=== PATIENT | male | born 1965 | race Caucasian/White ===

== ENCOUNTER 2017-03-18 12:01 | Emergency (ER) | payer SELFPAY ==
[2017-03-18] MEDS ORDERED: NS 0.9% 1000 ML* 1,000 ML IV ONE (12:12)
[2017-03-18 12:41] LABS: Hematocrit 46 % (42-52); Hemoglobin 15.8 g/dl (14.0-18.0); Mean Corpuscular HGB Conc 35 g/dl (31-36); Mean Corpuscular Hemoglobin 31 pg (27-31); Mean Corpuscular Volume 89 fL (80-94); Mean Platelet Volume 9 um3 (7.4-10.4); Red Blood Count 5.12 10^6/ul (4.0-5.4); Red Cell Distribution Width 14 % (10.5-15); White Blood Count 6.2 10^3/ul (3.5-10.8)
[2017-03-18 13:06] LABS: Albumin 4.1 g/dL (3.2-5.2); BUN/Creatinine Ratio 15.5 (8-20); EGFR African American 105.4 (>60); EGFR Non-African American 81.9 (>60); Potassium 4.1 mmol/L (3.5-5.0); Total Bilirubin 0.4 mg/dL (0.2-1.0); Total Protein 7.1 g/dL (6.4-8.9)
[2017-03-18 13:26] LABS: TSH (Thyroid Stimulating Horm) 2.89 mcIU/mL (0.34-5.60)
[2017-03-18 15:21] VITALS: BP 132/94
--- NOTE | 2017-03-23 09:19 | ED ---
Syncope/Near Syncope - HPI Summary HPI Summary: Patient presents to the ED BIBA after a syncopal episode at work. This is the first time this has happened. He states he was getting up to drink a glass of water when he became light headed and woke up on the floor surrounded by his co- workers. He denies head injury. The fall was witnesses and co-workers also state he did not injury his head. He denies any pain or LOCKETT. States immediately upon wakening, he was not confused or had memory loss and states he "felt fine." Ambulance was called at that time. He denies any health problems , takes no medications, does not smoke and is otherwise healthy. Denies personal or family history of cardiac issues or strokes. He is stable on arrival and in NAD. He states he ate breakfast that morning, but hadn't had anything to drink, which might have contributed to the fall. He had no memory loss prior to the fall. - History Of Current Complaint Chief Complaint: EDSyncope Time Seen by Provider: 03/18/17 12:10 Hx Obtained From: Patient Onset/Duration: Sudden Onset Timing: Minutes Context: Witnessed, Loss Of Consciousness Activity At Onset: At Rest Associated Head Trauma: No Aggravating Factor(s): Nothing Alleviating Factor(s): Spontaneous Resolution Frequency: Episodes x___ - 1, Episodes Lasting ____ (in Mins/Days/Weeks/Years) - 2-3 minutes - Risk Factors Cardiac Risk Factors: Negative Dysrhythmia Risk Factors: Negative Risk Factor(s): Negative - Allergies/Home Medications Allergies/Adverse Reactions: Allergies Allergy/AdvReac Type Severity Reaction Status Date / Time No Known Allergies Allergy Verified 03/18/17 12:07 PMH/Surg Hx/FS Hx/Imm Hx Previously Healthy: Yes - Immunization History Hx Pertussis Vaccination: No Immunizations Up to Date: Unable to Obtain/Confirm Infectious Disease History: No Infectious Disease History: Denies: Traveled Outside the [place] in Last 30 Days - Social History Occupation: Employed Full-time Alcohol Use: Weekly Substance Use Type: Reports: None Hx Tobacco Use: No Smoking Status (MU): Never Smoked Tobacco Review of Systems Negative: Fever, Chills, Fatigue Eyes: Negative Negative: Photophobia, Blurred Vision Positive: Epistaxis Cardiovascular: Negative Respiratory: Negative Positive: no symptoms reported, see HPI Musculoskeletal: Negative Skin: Negative Neurological: Negative All Other Systems Reviewed And Are Negative: Yes Physical Exam Triage Information Reviewed: Yes Vital Signs On Initial Exam: Initial Vitals Temp Pulse Resp BP Pulse Ox 97.9 F 85 17 137/85 96 03/18/17 12:02 03/18/17 12:02 03/18/17 12:02 03/18/17 12:02 03/18/17 12:02 Vital Signs Reviewed: Yes Appearance: Positive: Well-Appearing, Well-Nourished Skin: Positive: Warm, Skin Color Reflects Adequate Perfusion Head/Face: Positive: Normal Head/Face Inspection, Temporal Artery Tenderness Eyes: Positive: EOMI, BESSY, Conjunctiva Clear Respiratory/Lung Sounds: Positive: Clear to Auscultation, Breath Sounds Present Cardiovascular: Positive: Normal, RRR, Pulses are Symmetrical in both Upper and Lower Extremities Musculoskeletal: Positive: Normal, Strength/ROM Intact Neurological: Positive: Sensory/Motor Intact, Alert, Oriented to Person Place, Time, CN Intact II-III, Normal Gait, Facial Symmetry, Speech Normal. Negative: Abnormal Gait, Slurred Speech, Heel to Toe, Finger to Nose Psychiatric: Positive: Normal AVPU Assessment: Alert - [place] Coma Scale Best Eye Response: 4 - Spontaneous Best Motor Response: 6 - Obeys Commands Best Verbal Response: 5 - Oriented Coma Scale Total: 15 Diagnostics - Vital Signs Vital Signs Temp Pulse Resp BP Pulse Ox 03/18/17 15:26 98.3 F 17 03/18/17 15:00 93 132/94 95 03/18/17 14:54 97 142/93 03/18/17 14:53 88 141/86 03/18/17 14:52 88 16 146/82 03/18/17 14:42 93 142/93 97 03/18/17 14:39 95 16 146/82 97 03/18/17 14:30 94 22 147/95 97 03/18/17 14:00 94 15 126/80 98 03/18/17 13:57 96 17 97 03/18/17 13:56 138/80 03/18/17 12:05 97.9 F 87 17 137/85 98 03/18/17 12:02 97.9 F 85 17 137/85 96 - Laboratory Lab Results: Lab Results 03/18/17 03/18/17 03/18/17 Range/Units 12:30 12:30 12:30 WBC 6.2 (3.5-10.8) 10^3/ul RBC 5.12 (4.0-5.4) 10^6/ul Hgb 15.8 (14.0-18.0) g/dl Hct 46 (42-52) % MCV 89 (80-94) fL MCH 31 (27-31) pg MCHC 35 (31-36) g/dl RDW 14 (10.5-15) % Plt Count 203 (150-450) 10^3/ul MPV 9 (7.4-10.4) um3 Neut % (Auto) 73.7 (38-83) % Lymph % (Auto) 18.5 L (25-47) % [place] % (Auto) 5.4 (1-9) % Eos % (Auto) 2.0 (0-6) % Baso % (Auto) 0.4 (0-2) % Absolute Neuts (auto) 4.5 (1.5-7.7) 10^3/ul Absolute Lymphs (auto) 1.1 (1.0-4.8) 10^3/ul Absolute Monos (auto) 0.3 (0-0.8) 10^3/ul Absolute Eos (auto) 0.1 (0-0.6) 10^3/ul Absolute Basos (auto) 0 (0-0.2) 10^3/ul Absolute Nucleated RBC 0 10^3/ul Nucleated RBC % 0 Sodium 135 (133-145) mmol/L Potassium 4.1 (3.5-5.0) mmol/L Chloride 102 (101-111) mmol/L Carbon Dioxide 29 (22-32) mmol/L Anion Gap 4 (2-11) mmol/L BUN 15 (6-24) mg/dL Creatinine 0.97 (0.67-1.17) mg/dL Est GFR ( Amer) 105.4 (>60) Est GFR (Non-Af Amer) 81.9 (>60) BUN/Creatinine Ratio 15.5 (8-20) Glucose 148 H (70-100) mg/dL Lactic Acid 1.4 (0.5-2.0) mmol/L Calcium 9.0 (8.6-10.3) mg/dL Magnesium 2.0 (1.9-2.7) mg/dL Total Bilirubin 0.40 (0.2-1.0) mg/dL AST 15 (13-39) U/L ALT 26 (7-52) U/L Alkaline Phosphatase 46 (34-104) U/L Total Creatine Kinase 83 (10-223) U/L Troponin I 0.00 (<0.04) ng/mL Total Protein 7.1 (6.4-8.9) g/dL Albumin 4.1 (3.2-5.2) g/dL Globulin 3.0 (2-4) g/dL Albumin/Globulin Ratio 1.4 (1-3) TSH 2.89 (0.34-5.60) mcIU/mL Result Diagrams: 03/18/17 12:30 03/18/17 12:30 Lab Statement: Any lab studies that have been ordered have been reviewed, and results considered in the medical decision making process. Course/Dx Course Of Treatment: EKG WNL. Labs OK. VS stable on arrival. Treatement options discussed and patient is OK for discharge. Discussed possibilities for syncopal episode and patient is encouraged to follow up with his PCP in 2-3 days for recheck. He is OK with plan. 1L fluids. Orthostatic VS obtained and OK. - Diagnoses Differential Diagnosis/HQI/PQRI: Positive: Dysrhythmia, Hypovolemia, Vasovagal Episode Provider Diagnoses: Syncope Discharge - Discharge Plan Condition: Stable Disposition: HOME Patient Education Materials: Syncope (ED) Referrals: No Primary Care Phys,NOPCP [Primary Care Provider] - Additional Instructions: Follow up with PCP Likely your syncope was related to dehydration or low BP No significant findings in the ED If you develop worsening symptoms, return to the ED immediately
== END 2017-03-18 15:27 | disposition home or self-care (01) ==
LOC: ED 12:01
DX: R55 Syncope and collapse (principal)
CPT/HCPCS: 36415; 80053; 82550; 83605; 83735; 84443; 84484; 85025; 93005; 96360; 99283